=== PATIENT | female | born 1980 | race Caucasian/White ===

== ENCOUNTER 2025-02-02 16:50 | Emergency (ER) | payer OTHER, SELFPAY ==
--- NOTE | ~2025-02-02 | XR_ITS ---
XR chest 2V Ordering provider: Sebastian Brar MD History: 44 years Female with . dyspnea . Comparison: None. FINDINGS: MEDIASTINUM: The cardiac silhouette is not enlarged. LUNGS: No infiltrates, effusions or pneumothorax. OTHER: No free air under the diaphragm. IMPRESSION: No acute cardiopulmonary pathology. Reviewed, dictated and finalized at location A. [employer] WORK[employer]
--- OUTSIDE RECORDS SUMMARY | 2025-02-02 16:54 | XMS_ITS | Clinical Summary ---
Author Organization [address] Address [address] [place] [phone] Care Team Providers Care Rolls Mill Operator Name Role Phone No, Physician Primary Care Provider [phone] Allergies No known active allergies Medications budesonide-formote rol (SYMBICORT) 160-4.5 mcg/actuation inhaler 0 Inhaler 0 09/02/20 16 Active Additional Information Patient not taking.Reported on 03/02/2024 albuterol HFA (VENTOLIN HFA) 90 mcg/actuation inhaler 90 mcg. 0 Inhaler 0 09/02/20 16 Active acetaminophen-code ine (TYLENOL with CODEINE #3) 300-30 mg per tablet TK 1 T PO Q 4 H PRF LIVE Active aluminum chloride (Drysol Dab-O-Matic) 20 % external solution APPLY TOPICALLY TO THE AFFECTED AREA 2 TIMES A WEEK NEEDED FOR EXCESSIVE SWEATING Active cholecalciferol (VITAMIN D-3) 1,000 unit capsule Take 1 capsule every day by oral route with meal(s) for 30 days. 11/24/20 23 Active cyanocobalamin (Vitamin B-12) 1,[address] 1 tablet twice a day by sublingual route for 30 days. 11/24/20 23 Active FLUoxetine 10 mg tablet/capsule Take 1 tablet/capsule (10 mg total) by mouth every morning Active Advair Diskus 250-50 mcg/dose diskus inhaler Inhale 1 puff 2 (two) times a day 02/13/20 24 Active levonorgestreL (Mirena) IUD Take 1 insert by intrauterine route. Active metroNIDAZOLE (METROGEL) 0.75 % (37.5mg/5 gram) vaginal gel INSERT 1 APPLICATORFUL VAGINALLY EVERY DAY AT BEDTIME FOR 5 DAYS Active ondansetron ODT (ZOFRAN-ODT) 4 mg disintegrating tablet DISSOLVE 1 T PO Q 6 TO 8 H PRN NV Active polyethylene glycol (MIRALAX) 17 gram/dose bulk powder Take 17 g by mouth daily 12/17/19 17 Active predniSONE (DELTASONE) 10 mg tablet TK 4 TS PO X 3 DAYS THEN 2 TS X 3 DAYS THEN 1 T X 3DAYS Active sertraline (ZOLOFT) 25 mg tablet Take 1 tablet every day by oral route. Active sulfamethoxazole-t rimethoprim (BACTRIM DS) 800-160 mg per tablet Take 1 tablet by mouth 2 (two) times a day Active valACYclovir (VALTREX) 1 gram tablet Active Active Problems Problem Noted Date Diagnosed Date Atypical squamous cells of u ndetermined significance (ASCUS) on Papanicolaou smear of cervix 03/02/2024 Excessive sweating 03/02/2024 Premenstrual tension syndrome 03/02/2024 Low serum vitamin B12 11/23/2023 Low vitamin D level 11/23/2023 Unable to concentrate 10/24/2023 Axillary hyperhidrosis 08/16/2022 Multiple benign melanocytic nevi of upper and lower extremities and trunk 08/16/2022 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 at [address] [address] Mehul White NP Chest pain, unspecified type (Primary Dx); Acute respiratory infection; Exacerbation of asthma, unspecified asthma severity, unspecified whether persistent from Last 3 Months Immunizations Immunization Administration Dates Next Due Influenza, Quadrivalent, Spl it, Preservative Free, Intramuscular 09/19/2019 TD Preservative Free 06/26/2020 Medical History Medical History Date Comments Asthma Asthma Social History Tobacco Use Types Packs/Day Years Used Date Smoking Tobacco: Never Smokeless Tobacco: Never Comments Unknown Sex and Gender Information Value Date Recorded Sex Assigned at Not on file Legal Sex Female 6:41 AM ADVANCED REGISTERED NURSE Gender Identity Not on file Sexual Orientation Not on file Obstetrics History Last Filed Vital Signs Vital Sign Reading Time Taken Comments Blood Pressure 116/80 02/02/2025 4:02 PM ADVANCED REGISTERED NURSE Pulse 95 02/02/2025 4:02 PM ADVANCED REGISTERED NURSE Temperature 36.6 C (97.8 F) 02/02/2025 4:02 PM ADVANCED REGISTERED NURSE Respiratory Rate 20 02/02/2025 4:02 PM ADVANCED REGISTERED NURSE Oxygen Saturation 98% 02/02/2025 4:02 PM ADVANCED REGISTERED NURSE Inhaled Oxygen Concentration - - Weight 77.1 kg (170 lb) 02/02/2025 4:02 PM ADVANCED REGISTERED NURSE Height 162.6 cm (5' 4 ) 02/02/2025 4:02 PM ADVANCED REGISTERED NURSE Body Mass Index 29.18 02/02/2025 4:02 PM ADVANCED REGISTERED NURSE Plan of Treatment Health Maintenance Due Date Last Done Comments Breast Cancer Screening-Mammogram 1981 Cervical Cancer Screening 1981 Depression Screening 1981 Hepatitis C Screening 1981 Varicella Vaccines (1 of 2 - 13+ 2-dose series) 1994 Hepatitis B Screening 1999 Regular Well Visit/Exam 18-64 1999 Pneumococcal vaccine <65 (1 of 2 - PCV) 02/29/2000 DTaP/Tdap/Td Vaccine (1 - Tdap) 06/27/2020 06/26/2020 Covid-19 Vaccine (3 - season) 2024 03/02/2021, 01/30/2021 Influenza Vaccine Discontinued 09/19/2019 HPV Vaccines Aged Out No longer eligi ble based on patient's age to complete this topic Insurance [facility] Care Teams Rolls Mill Operator Relationship Specialty Start Date End Date No, Physician PCP - General 11/16/17
--- OUTSIDE RECORDS SUMMARY | 2025-02-02 16:54 | XMS_ITS | Clinical Summary ---
Author Organization [facility] Address [address] [place] [address] Phone Care Team Providers Care Roof Bolter Name Role Phone Provider, None Primary Care Provider Unavailabl e Allergies No known active allergies Medications ALBUTEROL IN take by inhalation. Active Budesonide-Form oterol Fumarate (SYMBICORT IN) take by inhalation. Active sulfamethoxazol e-trimethoprim DS (BACTRIM DS) 800-160 MG Tablet Take 1 Tab by mouth 2 times daily. Active polyethylene glycol (MIRALAX) Powder Take 17 g by mouth daily. 17 g = 1 scoop. Dissolve in 4 -8 oz of water or other liquid. 250 g 0 12/17/2016 Active Social History Tobacco Use Types Packs/Day Years Used Date Smoking Tobacco: Former Cigarettes Q uit: 12/17/2011 Alcohol Use Standard Drinks/Week Comments Yes 0 (1 standard drink = 0.6 oz pur e alcohol) Socially Comments No Sex and Gender Information Value Date Recorded Sex Assigned at Not on file Legal Sex Female 11:55 PM CDT Gender Identity Not on file Sexual Orientation Not on file Last Filed Vital Signs Vital Sign Reading Time Taken Comments Blood Pressure 117/64 12/17/2016 8:35 PM STRIP ROLLER Pulse 77 12/17/2016 10:41 PM STRIP ROLLER Temperature 37 C (98.6 F) 12/17/2016 8:32 PM STRIP ROLLER Respiratory Rate 16 12/17/2016 8:32 PM STRIP ROLLER Oxygen Saturation 99% 12/17/2016 10:41 PM STRIP ROLLER Inhaled Oxygen Concentration - - Weight 73 kg (161 lb) 12/17/2016 8:32 PM STRIP ROLLER Height 162.6 cm (5' 4 ) 12/17/2016 8:32 PM STRIP ROLLER Body Mass Index 27.64 12/17/2016 8:32 PM STRIP ROLLER Plan of Treatment Health Maintenance Due Date Last Done Comments Hepatitis C Virus (HCV) Screening 1981 TdaP Immunization 1981 Hepatitis B Immunization (1 of 3 - 19+ 3-dose series) 02/29/2000 Pap Smear 2002 Cervical Cancer Screening (CCS) 2011 HPV/Cotest 2011 Discussion re Starting/Frequ ency of Mammograms 2021 Influenza Immunization (#1) 2024 SARS-COV-2 Immunization ( season) 2024 Respiratory Syncytial Virus (RSV) Immunization (Adult) (1 - 1-dose 75+ series) 02/29/2056 Meningococcal Immunization (ACWY) Aged Out No longer eligible based on patient's age to complete this topic Pneumococcal Immunization Combined Aged Out No longer eligible based on patient's age to complete this topic Rotavirus Immunization Aged Out No lo nger eligible based on patient's age to complete this topic Insurance [employer] Care Teams Roof Bolter Relationship Specialty Start Date End Date Provider, None [place] PCP - General 12/17/16
--- OUTSIDE RECORDS SUMMARY | 2025-02-02 16:54 | XMS_ITS | Clinical Summary ---
Author Organization [facility] Address [address] [place] [address] Care Team Providers Care Wind Field Manager Name Role Phone Colleen Valera Primary Care Provider [phone] Source Comments [facility] [employer],non-owned Affiliates and Associated Physician Practices is amultiple site organization consisting of ambulatory clinics and hospital sitesin [place], [place], [place] and [place]. This disclosure is being madepursuant to the Care Everywhere program and may not contain all information available regarding this patient. Last updated 18.[facility] [employer] Allergies No known active allergies Medications * Be aware that medications may not be up to date on this document. Alwaysverify current medications with the patient. Medication Sig Dispensed Refills Start Date End Date Status levonorgestrel (Mirena) 20 MCG/DAY IUD 1 (one) device by Intrauterine route as directed Active Montelukast Sodium (SINGULAIR PO) Active Fluticasone-Salmete rol (ADVAIR DISKUS IN) Active aluminum chloride (Drysol) 20 % solution Drysol Dab-O-Matic 20 % topical solution APPLY TOPICALLY TO THE AFFECTED AREA TWICE A WEEK NEEDED FOR EXCESSIVE SWEATING Active albuterol HFA (Proventil; Ventolin; Proair) 108 (90 Base) MCG/ACT inhaler albuterol sulfate HFA 90 mcg/actuation aerosol inhaler Active vitamin D3 (Cholecalciferol) 25 MCG (1000 UNITS) tablet Take 1 (one) tablet by mouth once daily 02/13/2024 Active Active Problems Problem Noted Date Diagnosed Date Multiple benign melanocytic nevi of upper and lower extremities and trunk 08/16/2022 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 Axillary hyperhidrosis 08/16/2022 Immunizations Name Administration Dates Next Due TD (ADULT), 5 LF TETANUS TOXOID, ADSORBED, PF Social History Tobacco Use Types Packs/Day Years Used Date Smoking Tobacco: Former Smokeless Tobacco: Never Tobacco Cessation:Counseling Given: Not Answered Sex and Gender Information Value Date Recorded Sex Assigned at Not on file Gender Identity Not on file Sexual Orientation Not on file Last Filed Vital Signs Vital Sign Reading Time Taken Comments Blood Pressure 118/74 03/07/2020 11:26 AM CDT Pulse 70 03/07/2020 11:26 AM CDT Temperature 36.8 C (98.2 F) 03/07/2020 11:26 AM CDT Respiratory Rate 16 03/07/2020 11:26 AM CDT Oxygen Saturation 98% 03/07/2020 11:26 AM CDT Inhaled Oxygen Concentration - - Weight 77.1 kg (170 lb) 03/07/2020 11:26 AM CDT Height 165.1 cm (5' 5 ) 03/07/2020 11:26 AM CDT Body Mass Index 28.29 03/07/2020 11:26 AM CDT Plan of Treatment Upcoming Encounters Date Type Department Care Team (Late st Contact Info) Description 05/03/2025 10:30 AM CDT Office Visit [facility] - General Dermatology [address] , [address] [address] Lars Lua, PAaMidaC [address] [facility] [address] [place] [address] Health Maintenance Due Date Last Done Comments LIPID TESTING 1981 MAMMOGRAM 1981 PAP SMEAR 1981 HIV SCREENING 02/29/1996 HEPATITIS C SCREENING 02/24/1999 HEPATITIS B VACCINE (1 of 3 - 19+ 3-dose series) 02/29/2000 COVID-19 VACCINE (2023-2 5 season) 2024 03/02/2021, 01/30/2021 INFLUENZA VACCINE (#1) 2024 09/19/2019 DEPRESSION SCREENING 11/28/2024 DTAP/TDAP/TD VACCINES (2 - T d or Tdap) 06/26/2030 06/26/2020 ZOSTER VACCINE (1 of 2) 2031 HIB VACCINE Aged Out No longer eligi ble based on patient's age to complete this topic HPV VACCINE Aged Out No longer eligi ble based on patient's age to complete this topic MENINGOCOCCAL (Group B) VACCINE Aged Out No longer eligible b ased on patient's age to complete this topic MENINGOCOCCAL VACCINE Aged Out No toan jono eligible based on patient's age to complete this topic PNEUMOCOCCAL VACCINE Aged Out No long er eligible based on patient's age to complete this topic Care Teams Wind Field Manager Relationship Specialty Start Date End Date Colleen Valera [address] [place] [phone] PCP - General 05/02/24
--- OUTSIDE RECORDS SUMMARY | 2025-02-02 16:54 | XMS_ITS | Patient Health Summary ---
Author Organization [facility] Address [address] [facility] [place] [address] Care Team Providers Care Strategy Intern Name Role Phone Colleen Valera Primary Care Provider [phone] Note from [facility],non-owned Affiliates and Associated Physician Practices is amultiple site organization consisting of ambulatory clinics and hospital sitesin [place], [place], [place] and [place]. This disclosure is being madepursuant to the Care Everywhere program and may not contain all information available regarding this patient. Last updated 18.[facility] [employer] Allergies No known active allergies Medications * Be aware that medications may not be up to date on this document. Alwaysverify current medications with the patient. * levonorgestrel (Mirena) 20 MCG/DAY IUD 1 (one) device by Intrauterine route as directed * Montelukast Sodium (SINGULAIR PO) * Fluticasone-Salmeterol (ADVAIR DISKUS IN) * aluminum chloride (Drysol) 20 % solution Drysol Dab-O-Matic 20 % topical solution APPLY TOPICALLY TO THE AFFECTED AREA TWICE A WEEK NEEDED FOR EXCESSIVE SWEATING * albuterol HFA (Proventil; Ventolin; Proair) 108 (90 Base) MCG/ACT inhaler albuterol sulfate HFA 90 mcg/actuation aerosol inhaler * vitamin D3 (Cholecalciferol) 25 MCG (1000 UNITS) tablet(Started 02/13/2024) Take 1 (one) tablet by mouth once daily Active Problems Problem Noted Date Diagnosed Date Multiple benign melanocytic nevi of upper and lower extremities and trunk 08/16/2022 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 Axillary hyperhidrosis 08/16/2022 Immunizations * TD (ADULT), 5 LF TETANUS TOXOID, ADSORBED, PF(Given 06/26/2020) Social History Tobacco Use Types Packs/Day Years [...] Mass Index 28.29 03/07/2020 11:26 AM CDT Procedures * INFLUENZA A+B - POINT OF CARE (AMB)(Performed 01/09/2020) Performed for Acute maxillary sinusitis, recurrence not specified, Exposure to influenza * STREP A SCREEN - POINT OF CARE (AMB) STL(Performed 01/09/2020) Performed for Acute maxillary sinusitis, recurrence not specified, Exposure to influenza * CULTURE RESPIRATORY UPPER(Performed 05/07/2019) Performed for Acute pharyngitis, unspecified etiology * STREP A SCREEN - POINT OF CARE (AMB) STL(Performed 05/07/2019) Performed for Acute pharyngitis, unspecified etiology * STREP A SCREEN - POINT OF CARE (AMB) STL(Performed 05/21/2018) Performed for Acute pharyngitis, unspecified etiology * STREP A SCREEN - POINT OF CARE (AMB) STL(Performed 12/07/2017) Performed for Acute sinusitis, recurrence not specified, unspecified location * INFLUENZA A+B - POINT OF CARE (AMB)(Performed 12/07/2017) Performed for Influenza Results * INFLUENZA A+B - POINT OF CARE (AMB) (01/09/2020 10:56 AM TIRE FABRIC INSPECTOR) Only the most recent of2 resultswithin the time period is included. Influenza A Antigen Rapid Negative Negative Influenza B Antigen Rapid Negative Negative Influenza Internal Control present NEGATIVE - POSITIVE Influenza Lot Number [id number] Influenza Expiration Date 09 11 2021 Other NASOPHARYNGEAL SWAB / Unknown 01/09/2020 10:56 AM TIRE FABRIC INSPECTOR Mehul White APRN-SPECIAL NEEDS BUS DRIVER LAB - POINT OF CA RE ORDERABLES * STREP A SCREEN - POINT OF CARE (AMB) STL (01/09/2020 10:55 AM TIRE FABRIC INSPECTOR) Only the most recent of4 resultswithin the time period is included. Strep A Rapid POCT Negative Negative Strep A Internal Control Present Lot # [id number] Expiration Date 04 27 2021 Throat ENTIRE THROAT (SURFACE REGION OF NECK) / Unknown 01/09/2020 10:55 AM TIRE FABRIC INSPECTOR Grabielishmael Christopher DE LEONN-SPECIAL NEEDS BUS DRIVER LAB - POINT OF CA RE ORDERABLES * CULTURE RESPIRATORY UPPER (05/07/2019 4:27 PM CDT) Upper Respiratory Culture Final report [facility] INSURANCE BILL Result 1 [facility] INSURANCE BILL Comment:Routine respiratory ashley Microbiology ENTIRE THROAT (SURFACE REGION OF NECK) / Unknown 05/07/2019 4:27 PM CDT 05/07/2019 Narrative Resulting Agency Comment [facility] [address] [facility] [id number] Driss Kerns APRN-SPECIAL NEEDS BUS DRIVER LAB - MICRO BIOLOGY ORDERABLES [facility] INSURANCE BILL [address] [place] [address] Care Teams Strategy Intern Relationship Specialty Start Date End Date Colleen Valera [address] [place] [phone] PCP - General 05/02/24
--- OUTSIDE RECORDS SUMMARY | 2025-02-02 16:54 | XMS_ITS | Referral Summary ---
Author Organization [id number] Address [address] [place] [address] Care Team Providers Care Pizza Chef Name Role Phone No, Physician Primary Care Provider [phone] Encounters Date Type Department Care Team Description 02/02/2025 4:00 PM ACCESS CLINICIAN Office Visit [facility] at [address] [address] Mehul White NP Chest pain, unspecified type (Primary Dx); Acute respiratory infection; Exacerbation of asthma, unspecified asthma severity, unspecified whether persistent from Last 3 Months Allergies No known active allergies Medications budesonide-formote [...] iratory syndrome coronavirus 2 (SARS-CoV-2) disease 11/10/2021 Immunizations Immunization Administration Dates Next Due Influenza, Quadrivalent, Spl it, Preservative Free, Intramuscular 09/19/2019 TD Preservative Free 06/26/2020 Social History Tobacco Use Types Packs/Day Years Used Date Smoking Tobacco: Never Smokeless Tobacco: Never Comments Unknown Sex and Gender Information Value Date Recorded Sex Assigned at Not on file Legal Sex Female 6:41 AM ACCESS CLINICIAN Gender Identity Not on file Sexual Orientation Not on file Last Filed Vital Signs Vital Sign Reading Time Taken Comments Blood Pressure 116/80 02/02/2025 4:02 PM ACCESS CLINICIAN Pulse 95 02/02/2025 4:02 PM ACCESS CLINICIAN Temperature 36.6 C (97.8 F) 02/02/2025 4:02 PM ACCESS CLINICIAN Respiratory Rate 20 02/02/2025 4:02 PM ACCESS CLINICIAN Oxygen Saturation 98% 02/02/2025 4:02 PM ACCESS CLINICIAN Inhaled Oxygen Concentration - - Weight 77.1 kg (170 lb) 02/02/2025 4:02 PM ACCESS CLINICIAN Height 162.6 cm (5' 4 ) 02/02/2025 4:02 PM ACCESS CLINICIAN Body Mass Index 29.18 02/02/2025 4:02 PM ACCESS CLINICIAN Plan of Treatment Not on file Insurance [facility] Care Teams Pizza Chef Relationship Specialty Start Date End Date No, Physician PCP - General 11/16/17
--- OUTSIDE RECORDS SUMMARY | 2025-02-02 16:54 | XMS_ITS | Encounter Summary ---
Author Organization [facility] Address [address] [place] [address] Care Team Providers Care Operating Theatre Technician Name Role Phone No, Physician Primary Care Provider [phone] Reason for Visit * Reason Comments Cough Started Tuesday an progressively worse within the last 24 hours. Yellow green mucus coming up. Using inhaler more than normal. Hx of asthma. Wheezing More at night. Has n ot been using neb tx. Chest Pain With left arm pain. Started in the middle of the night. Encounter Details Date Type Department Care Team (Late st Contact Info) Description 02/02/2025 4:00 PM FINAL INSPECTOR BALANCE WHEEL Office Visit [facility] at [address] [address] Mehul White NP [address] [place] [address] [address] [place] [address] Chest pain, unspecified type (Primary Dx); Acute respiratory infection; Exacerbation of asthma, unspecified asthma severity, unspecified whether persistent Social History Tobacco Use Types Packs/Day Years Used Date Smoking Tobacco: Never Smokeless Tobacco: Never Comments Unknown Sex and Gender Information Value Date Recorded Sex Assigned at Not on file Legal Sex Female 6:41 AM FINAL INSPECTOR BALANCE WHEEL Gender Identity Not on file Sexual Orientation Not on file documented as of this encounter Last Filed Vital Signs Vital Sign Reading Time Taken Comments Blood Pressure 116/80 02/02/2025 4:02 PM FINAL INSPECTOR BALANCE WHEEL Pulse 95 02/02/2025 4:02 PM FINAL INSPECTOR BALANCE WHEEL Temperature 36.6 C (97.8 F) 02/02/2025 4:02 PM FINAL INSPECTOR BALANCE WHEEL Respiratory Rate 20 02/02/2025 4:02 PM FINAL INSPECTOR BALANCE WHEEL Oxygen Saturation 98% 02/02/2025 4:02 PM FINAL INSPECTOR BALANCE WHEEL Inhaled Oxygen Concentration - - Weight 77.1 kg (170 lb) 02/02/2025 4:02 PM FINAL INSPECTOR BALANCE WHEEL Height 162.6 cm (5' 4 ) 02/02/2025 4:02 PM FINAL INSPECTOR BALANCE WHEEL Body Mass Index 29.18 02/02/2025 4:02 PM FINAL INSPECTOR BALANCE WHEEL documented in this encounter Plan of Treatment Not on file documented as of this encounter Visit Diagnoses Diagnosis Chest pain, unspecified type- Primary Acute respiratory infection Other diseases of respiratory system, not elsewhere classified Exacerbation of asthma, unspecified asthma severity, unspecified whether persistent documented in this encounter Care Teams Operating Theatre Technician Relationship Specialty Start Date End Date No, Physician PCP - General 11/16/17 documented as of this encounter
--- OUTSIDE RECORDS SUMMARY | 2025-02-02 16:54 | XMS_ITS | Referral Summary ---
Author Organization [facility] Address [address] [facility] [place] [address] Care Team Providers Care [address] Sprinkler Name Role Phone Colleen Valera Primary Care Provider [phone] Source Comments [facility],non-owned Affiliates and Associated Physician Practices is amultiple site organization consisting of ambulatory clinics and hospital sitesin [place], [place], [place] and [place]. This disclosure is being madepursuant to the Care Everywhere program and may not contain all information available regarding this patient. Last updated 18.[facility] [employer] Allergies No known active allergies Medications * [...] Visit [facility] - General Dermatology [address], [facility] [address] [place] [address] Lras Lua PAMaidaC [address] [facility] [address] [place] [address] Sprinkler Relationship Specialty Start Date End Date Colleen Valera [address] [place] [phone] PCP - General 05/02/24
--- OUTSIDE RECORDS SUMMARY | 2025-02-02 16:54 | XMS_ITS | Data Portability ---
Author Organization [facility], Main Office Address [address] [place] [address] Care Team Providers Care Supervisor Rework Name Role Phone FELICIA ALVA Primary Care Provider Assessment Encounter Date Assessment Date Assessment LastModified by Organization Details LastModified Time 01/02/2025 01/02/2025 The patient gave verbal consent using TelePhonic services and the consent is documented in the medical record prior to using the service. The patient has been informed of what a TeleMedicine visit is. Patient is located at home. Provider is located at office. Names and roles of persons in addition to the patient and provider participating in telemedicine services include . The patient had a 8 minute TeleMedicine consultation via [employer] to discuss the following: [email or web address] Not available 01/02/2025 10:00:25 Plan of Treatment Reminders Order Date Submit Date Provider Last Modified By Organization Details Last Modified Time Details Appointments New Patient 40 2024 02:00P Sharla Medrano, PMHNP Not available Not available Not available Lab TSH, serum or plasma 2023 024 [facility] (Lab), [address] [place], [address], 03/13/2024 09:41:52 vitamin B12 + folate, serum or blood 2022 023 [email or web address] 1 [facility] (Lab), [address] [place], [address], 11/08/2023 12:24:53 vitamin D3, 25-hydrox y, serum 2022 023 [email or web address] 1 [facility] (Lab), [address] [place], [address], 11/08/2023 12:24:54 magnesium , serum or plasma 2022 023 [email or web address] 1 [facility] (Lab), [address] [place], [address], 11/08/2023 12:24:54 glycohemo globin, total, blood 2022 023 [email or web address] 1 [facility] (Lab), [address] [place], [address], 11/08/2023 12:24:53 CK (creatine kinase), total, serum 2022 023 [email or web address] 1 [facility] (Lab), [address] [place], [address], 11/08/2023 12:24:53 CMP, serum or plasma 2022 023 [email or web address] 1 [facility] (Lab), [address] [place], [address], 11/08/2023 12:24:53 lipid panel, serum 2022 023 [email or web address] [facility] (Lab), [address] [place], [address], 11/08/2023 08:53:04 Referral psychiatr ist referral - Please call patient to schedule an appointme nt. Thank you. 2024 025 ELIOT Medrano Pmhnp, [address], [address], 01/15/2025 17:08:33 psychiatr ist referral - Would like ADD screening . Please call patient to schedule an appointme nt. Thank you. 2023 024 [email or web address] [facility], [address] [place] [address], [address], 04/09/2024 08:44:33 Procedures None recorded. Surgeries None recorded. Imaging None recorded. Medication Orders bupropion HCl XL 150 mg 24 hr tablet, extended release 2024 025 [facility]57686, [address], [place], [id number], 01/11/2025 16:48:53 bupropion HCl XL 300 mg 24 hr tablet, extended release 2024 025 [facility] #90447, [address], [place], [id number], 01/11/2025 16:48:56 albuterol sulfate HFA 90 mcg/actua tion aerosol inhaler 2024 025 [facility] #02447, [address], [place], [id number], 01/02/2025 09:38:52 Drysol Dab-O-Mat ic 20 % topical solution 2024 025 [facility] #13734, [address], [place], [id number], 01/02/2025 09:38:52 Advair Diskus 250 mcg-50 mcg/dose powder for inhalatio n 2023 024 [facility] #67317, [address], [place], [id number], 03/12/2024 11:25:16 albuterol sulfate HFA 90 mcg/actua tion aerosol inhaler 2023 024 [facility] #68160, [address], [place], [id number], 03/12/2024 11:25:27 cholecalc iferol (vitamin D3) 25 mcg (1,000 unit) capsule [address] [facility]88498, [address], [place], [id number], 03/12/2024 10:26:25 cyanocoba gabriela (vit B-12) 1,000 mcg sublingua l tablet 2022 023 [facility] #74921, [address], [place], [id number], 11/24/2023 11:19:58 Advair Diskus 250 mcg-50 mcg/dose powder for inhalatio n 2022 023 [facility] #31798, [address], [place], [id number], 10/25/2023 11:51:06 albuterol sulfate HFA 90 mcg/actua tion aerosol inhaler 2022 023 [facility] #55454, [address], [place], [id number], 10/25/2023 11:51:07 Drysol Dab-O-Mat ic 20 % topical solution 2022 023 [facility] #71467, [address], [place], [id number], 10/25/2023 11:51:10 fluoxetin e 10 mg capsule [address] [facility]13673, [address] [place] [address], [id number], 01/11/2025 16:38:55 Patient TargetsNo targets recorded. Patient Instructions Encounter Date Encounter Id Patient Instructions Last Modified By Organization Details Last Modified Time 10/25/2023 [id number] no si/hi [email or web address] Not available 21:47:51 11/24/2023 [id number] she's going to watch her diet first befor starting a chol pill [email or web address] Not available 11/24/2023 11:17:10 01/02/2025 [id number] Due to the COVID-19 (Novel Coronavirus) pandemic, it is within this context (and with the understanding that this method of patient encounter is in the patient s best interest as well as the health and safety of other patients and the public) that telehealth is being provided for this patient encounter rather than a xlhs-dt-vtkv visit. This patient encounter is appropriate at this time. This patient has been advised of the potential risks and limitations of this mode of treatment (including, but not limited to, the absence of in-person examination) and has agreed to be treated in a remote fashion despite these risks. Any and all of the patient s/patient s family s questions on this issue have been answered, and I have made no promises or guarantees to the patient. The patient has also been advised to contact this office for worsening conditions or problems, and seek emergency medical treatment and/or call 911 if the patient deems either necessary. HPI and/or vitals, if listed, were provided by the patient. [email or web address] Not available 01/02/2025 09:57:49 Reason for Referral Psychiatrist Referral for Un able to concentrate Would like ADD screening. Please call patient to schedule an appointment. Thank you. Referring Physician: Felicia Alva [facility], Encounter Date: 03/12/2024 Psychiatrist Referral for Un able to concentrate Please call patient to schedule an appointment. Thank you. Referring Physician: Felicia Alva [facility] [employer] [facility], Encounter Date: 01/11/2025 Results Created Date Observation Date Name Description Value Unit Range Abnormal Flag Note LastModifiedBy Organization Detail LastModifiedTime Result Notes None recorded. Problems Name Problem SNOMED Code Status Onset Date Resolution Date Notes Provider Name and Address Organization Details Recorded Time Asthma 810296005 Active 2020 Not Available [facility] 3 08:22:06 History of SARS-CoV- 2 82032924583 7660726 Active 2020 Not Available [facility] 3 08:22:07 Atypical squamous cells of undetermi nabila significa nce on cervical Papanicol aou smear 751453374 Completed Not Available [facility] 3 08:22:07 Excessive sweating 96955120 Active Not Available [facility] 3 08:22:07 Premenstr ual tension syndrome 26247746 Active Not Available [facility] 3 08:22:07 Family history of hyperlipi demia 928812012 Active 2022 JANUARY Austin [address], [address], [place], [address] , [employer] [facility] [employer] [facility] 3 11:52:04 Unable to concentra te 85403227 Active 2022 JANUARY Austin [address], [address], [place], [address] , [employer] [facility] 3 11:55:36 Diabetes mellitus screening Active 2022 JANUARY Austin [address], [address], [place], [address] , [employer] [facility] 3 11:57:31 Vitamin D below reference range 196497741 Active 2022 JANUARY Austin [address], [address], [place], [address] , [employer] [facility] 3 11:17:23 Serum vitamin B12 below reference range 737175994 Active 2022 JANUARY Austin [address], [address], [place], [address] , [employer] [facility] 3 11:17:33 Weight gain 3493681 Active 2023 DREW Curiel [address], [address], [place], [address] , [employer] [facility] 4 10:53:44 Problem Notes None recorded. Medical Equipment None Reported. Allergies No known drug allergies Medications Name Sig Start Date Stop Date Status Note LastModified by Organization Details LastModified Time Mirena 21 mcg/24 hr (up to 8 years) 52 mg intrauterin e device Take 1 insert by intrauter ine route. active Not Available Not Available No t Available prednisone 10 mg tablet TK 4 TS PO X 3 DAYS THEN 2 TS X 3 DAYS THEN 1 T X 3DAYS active Not Available Not Available No t Available doxycycline hyclate 100 mg capsule 03/12 completed Not Available Not Available Not Available azithromyci n 250 mg tablet 01/19 completed Not Available Not Available Not Available valacyclovi r 1 gram tablet 03/12 completed Not Available Not Available Not Available phenazopyri dine 200 mg tablet TK 1 T PO TID FOR 2 DAYS 02/01 completed Not Available Not Available Not Available metronidazo le 0.75 % (37.5 mg/5 gram) vaginal gel INSERT 1 APPLICATO RFUL VAGINALLY EVERY DAY AT BEDTIME FOR 5 DAYS 01/29 completed Not Available Not Available Not Available prednisone 20 mg tablet TAKE 3 TABLETS BY MOUTH EVERY DAY FOR 5 DAYS 10/25 completed Not Available Not Available Not Available metronidazo le 500 mg tablet TAKE ONE TABLET BY MOUTH EVERY 12 HOURS X 7DAYS 01/02 completed Not Available Not Available Not Available acetaminoph en 300 mg-codeine 30 mg tablet TK 1 T PO Q 4 H PRF LIVE active Not Available Not Available No t Available sulfamethox azole 800 mg-trimetho prim 160 mg tablet TK 1 T PO Q 12 H 11/11 completed Not Available Not Available Not Available omeprazole 40 mg capsule,del ayed release Take 1 capsule every day by oral route for 30 days. 10/25 completed Not Available Not Available Not Available oxycodone-a cetaminophe n 5 mg-325 mg tablet TK 1 T PO Q 3 H 01/19 completed Not Available Not Available Not Available oseltamivir 75 mg capsule TK ONE C PO BID FOR 5 DAYS 01/19 completed Not Available Not Available Not Available misoprostol 200 mcg tablet TK 2 TS PO HS FOR 1 DAY 02/01 completed Not Available Not Available Not Available Advair Diskus 250 mcg-50 mcg/dose powder for inhalation INHALE 1 PUFF BY MOUTH TWICE DAILY. RINSE MOUTH AFTER USE EACH PUFF active Not Available Not Available No t Available fluoxetine 10 mg capsule TAKE 1 CAPSULE BY MOUTH EVERY DAY IN THE MORNING active Not Available Not Available No t Available sertraline 25 mg tablet Take 1 tablet every day by oral route. active Not Available Not Available No t Available Drysol Dab-O-Matic 20 % topical solution APPLY TOPICALLY TO THE AFFECTED AREA TWICE A WEEK NEEDED FOR EXCESSIVE SWEATING 2024 active Not Available Not Available Not Avai lable montelukast 10 mg tablet TK 1 T PO QD IN THE ERENDIRA 01/19 completed Not Available Not Available Not Available cyanocobala min (vit B-12) 1,[address] 1 tablet twice a day by sublingua l route for 30 days. 2022 active Not Available Not Available Not Avai lable mupirocin 2 % topical ointment APPLY TOPICALLY TO THE AFFECTED AREA THREE TIMES DAILY FOR 10 DAYS 03/12 completed Not Available Not Available Not Available ibuprofen 600 mg tablet TK 1 T PO Q 8 HOURS 02/07 completed Not Available Not Available Not Available polyethylen e glycol 3350 17 gram/dose oral powder MIX 17G IN 4 -8OZ OF WATER OR OTHER LIQUID AND DRINK D 02/01 completed Not Available Not Available Not Available methylpredn isolone 4 mg tablets in a dose pack Take as directed 04/15 completed Not Available Not Available Not Available albuterol sulfate HFA 90 mcg/actuati on aerosol inhaler INHALE 2 PUFFS BY MOUTH EVERY 4 HOURS NEEDED active Not Available Not Available No t Available oxybutynin chloride 5 mg tablet TK 1 T PO QD 10/12 completed Not Available Not Available Not Available ondansetron 4 mg disintegrat ing tablet DISSOLVE 1 T PO Q 6 TO 8 H PRN NV active Not Available Not Available No t Available doxycycline hyclate 100 mg tablet TAKE 1 TABLET BY MOUTH EVERY 12 HOURS FOR 10 DAYS 04/15 completed Not Available Not Available Not Available amoxicillin 875 mg-potassiu m clavulanate 125 mg tablet TK 1 T PO BID FOR 10 DAYS 01/19 completed Not Available Not Available Not Available cholecalcif kate (vitamin D3) 25 mcg (1,000 unit) capsule Take 1 capsule every day by oral route with meal(s) for 30 days. 03/12 completed Not Available Not Available Not Available bupropion HCl XL 300 mg 24 hr tablet, extended release TAKE 1 TABLET BY MOUTH EVERY DAY DIRECTED active Not Available Not Available No t Available bupropion HCl XL 150 mg 24 hr tablet, extended release Take 1 tablet every day by oral route as directed for 14 days. active Not Available Not Available No t Available cholecalcif kate (vitamin D3) 25 mcg (1,000 unit) tablet TAKE 1 TABLET BY MOUTH DAILY active Not Available Not Available No t Available Symbicort 160 mcg-4.5 mcg/actuati on HFA aerosol inhaler INHALE 2 PUFFS PO BID QAM AND QPM 08/23 completed Not Available Not Available Not Available Flonase Allergy Relief 50 mcg/actuati on nasal spray,suspe nsion Benedict 2 sprays every day by intranasa l route. 10/25 completed Not Available Not Available Not Available Solosec [address] granules in packet MIX AND DRINK 1 PACKET BY MOUTH 1 TIME 10/25 completed Not Available Not Available Not Available Afluria Qd 2019- (36 mos up)(PF)60 mcg (15 mcg x4)/0.5 mL IM syringe TO BE ADMINISTE RED BY PHARMACIS T FOR IMMUNIZAT ION 11/11 completed Not Available Not Available Not Available Vitals Date Recorded Body weight Body mass index (BMI) Body height Body temperature Heart rate Oxygen saturation Oxygen saturation in Arterial blood by Pulse oximetry Systolic blood pressure Diastolic blood pressure Provider Name and Address Organization Details Last Updated DateTime 3 17895.8 5 g 29.5 kg/m2 165.1 cm 97.6 [degF] 70 /min 98 % 98 % 116 mm[Hg] 72 mm[Hg] VIVEK Kendrick - [facility] [employer] 3 11:32:48 Date Recorded Body height Body mass index (BMI) Body weight Body temperature Heart rate Oxygen saturation Oxygen saturation in Arterial blood by Pulse oximetry Systolic blood pressure Diastolic blood pressure Provider Name and Address Organization Details Last Updated DateTime 3 165.1 cm 29.5 kg/m2 88027.8 5 g 97.6 [degF] 71 /min 98 % 98 % 122 mm[Hg] 78 mm[Hg] Clare Godoy MA [place] [employer] 3 11:01:44 Date Recorded Body height Body mass index (BMI) Body weight Body temperature Heart rate Respiratory rate Oxygen saturation Oxygen saturation in Arterial blood by Pulse oximetry Pain severity - 0-10 verbal numeric rating [Score] - Reported Systolic blood pressure Diastolic blood pressure Provider Name and Address Organization Details Last Updated DateTime 4 165.1 cm 30 kg/m2 44995.6 8 g 97.2 [degF] 64 /min 20 /min 99 % 99 % 4 110 mm[Hg] 70 mm[Hg] Kandy Veloz RN [facility] 4 10:31:21 Date Recorded Body height Body mass index (BMI) Body weight Body temperature Heart rate Respiratory rate Oxygen saturation Oxygen saturation in Arterial blood by Pulse oximetry Pain severity - 0-10 verbal numeric rating [Score] - Reported Systolic blood pressure Diastolic blood pressure Provider Name and Address Organization Details Last Updated DateTime 5 165.1 cm 28.7 kg/m2 35135.2 9 g 97.1 [degF] 66 /min 20 /min 99 % 99 % 0 117 mm[Hg] 70 mm[Hg] Kandy Veloz RN [place] [employer] [facility] 5 16:40:58 Social History Question Answer Notes LastModified by Organizat ion Details LastModified Time Tobacco Smoking Status Former Smoker Clare Godoy MA [facility] [employer] [facility] 10/25/2023 11:35:18 Do You Have An Advance Directive? No Information not available 03/12/2024 What Is Your Level Of Alcohol Consumption? Occasional [email or web address] Information not available 10/25/2023 Is Blood Transfusion Acceptable In An Emergency? Yes Information not available 03/12/2024 What Is Your Level Of Caffeine Consumption? Occasional [email or web address] Information not available 10/25/2023 What Is Your Code Status? Full Code Information not available 03/12/2024 In The 14 Days Before Symptom Onset, Have You Had Close Contact With A Laboratory-rosana joseph COVID-19 While That Case Was Ill? No Information not available 03/12/2024 In The 14 Days Before Symptom Onset, Have You Had Close Contact With A Person Who Is Under Investigation For COVID-19 While That Person Was Ill? No Information not available 03/12/2024 Are You Currently Employed? Yes Information not available 03/12/2024 What Type Of Diet Are You Following? 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 4 Information not available 03/12/2024 On Those Days That You Engage In Moderate To Strenuous Exercise, How Many Minutes, On Average, Do You Exercise? 60 Information not available 03/12/2024 Have There Been Any Changes To Your Family Or Social Situation? No Information not available 03/12/2024 When Did You Quit Smoking? 11-15yearssincelast cigarette [email or web address] Information not available 10/25/2023 Are There Any Guns Present In Your Home? No Information not available 03/12/2024 Do You Use Insect Repellent Routinely? Yes Information not available 03/12/2024 Where Do You Live? SingleLevelHouse Information not available 03/12/2024 Do You Have A Medical Power Of Extractive Metallurgist? No Information not available 03/12/2024 How Many Children Do You Have? 1 Information not available 03/12/2024 Do You Have Any Pets? Yes Information not available 03/12/2024 What Is Your Relationship Status? Information not available 03/12/2024 Do You Use Your Seat Belt Or Car Seat Routinely? Yes Information not available 10/25/2023 Do You Have Smoke And Carbon Monoxide Detectors In Your Home? Yes Information not available 03/12/2024 Are You Passively Exposed To Smoke? No Information not available 03/12/2024 Are There Any Smokers In Your House? No Information not available 03/12/2024 Do You Participate In Social Media? Yes [email or web address] Information not available 10/25/2023 What Types Of Sporting Activities Do You Participate In? Weight Training, Walk Information not available 03/12/2024 Do You Feel Stressed (tense, Restless, Nervous, Or Anxious, Or Unable To Sleep At Night)? [id number] [email or web address] Information not available 10/25/2023 Do You Use Any Illicit Or Recreational Drugs? No Information not available 10/25/2023 Do You Use Sunscreen Routinely? Yes Information not available 03/12/2024 Have You Recently Traveled Abroad? No Information not available 03/12/2024 Sex: Female Functional Status Question Answer Note LastModified by Organization D etails LastModified Time What is your exercise level? Heavy Information not available 03/12/2024 Mental Status None recorded. Family History Relationship Description Onset Age of this Age Resolved Age Notes LastModified by Organization Details LastModified Time Mother Osteoporosis [id number] Not available 01/26/2023 08:19:25 Medical History Condition Response ASTHMA Y Gynecological History Statement/Question Response Current Control Method Obstetrics History GPAL:G 0 P 0 0 0 0 Immunizations Vaccine Type Date Status Note Provider Nam e and Address Organization Details Recorded Time COVID-19, mRNA, LNP-S, PF, 30 mcg/0.3 mL dose 1 completed DREW Curiel [address], [address] [address], [place], [address], [facility] 03/12/2024 09:23:35 COVID-19, mRNA, LNP-S, PF, 30 mcg/0.3 mL dose 1 completed DREW Curiel [address], [address], [place], [address], [facility] 03/12/2024 09:23:35 Td (adult), 5 Lf tetanus toxoid, preservative free, adsorbed 0 completed DREW Curiel [address], [address], [place], [address], [facility] [place] [employer] 03/12/2024 09:23:35 Influenza, split virus, quadrivalent, PF 9 completed DREW Curiel [address], [place], [address], [facility] [employer] [facility] 03/12/2024 09:23:35 Past Encounters Encounter ID Performer Location Encounter Start Date Encounter Closed Date Diagnosis/Indication Diagnosis SNOMED-CT Code Diagnosis ICD10 Code Diagnosis Note [id number] [facility] [place] [address] [place] [address] [place] [address] 11/11/2021 00:00:00 11/11/2021 10:05:20 [id number] [facility] [place] [address] [place] [address] [place] [address] 12/07/2021 00:00:00 12/07/2021 13:04:42 [id number] [facility] [place] [address] 04/15/2022 00:00:00 04/15/2022 15:25:33 [id number] JANUARY Austin [facility] [place] [address] [place] [address] [place] [address] 10/25/2023 11:23:17 10/25/2023 12:01:38 Asthma 918862671 J45.909 Excessive sweating 62988 005 R61 hyperhidro sis Family his tory of hyperlipidemia 394786250 Z83.49 Unable to concentrate 60 391933 R41.840 Diabetes m ellitus screening 905635540 Z13.1 At [facility] risk of nutritional deficit 845046198 Z91.89 [id number] JANUARY Austin [facility] [address] [place] [address] 11/24/2023 10:55:23 11/24/2023 11:17:25 Vitamin D below reference range 119331350 E55.9 Serum abram min B12 below reference range 066307966 R79.89 Asthma 521567668 J45.90 9 Excessive sweating 26898 005 R61 hyperhidro sis Premenstru al tension syndrome 01744339 N94.3 [id number] [facility] [address] 03/12/2024 10:18:12 03/12/2024 11:06:48 Unable to concentrate 23998164 R41.840 Weight gain 7547742 R63. 5 Asthma 538411884 J45.90 9 [id number] Felicia Alva [address] [address] 01/02/2025 08:42:13 01/02/2025 10:01:37 Asthma 896390376 J45.909 Worsening wheezing symptoms. Notes requiring albuterol more frequently and running out quickly.St ill utilizing advair daily Excessive sweating 51922 005 R61 [id number] Felicia Alva [facility] [address] 01/11/2025 16:27:17 01/14/2025 08:53:12 Unable to concentrate 53843710 R41.840 Would like to be evaluated for ADHD Health Concerns Section Related Observation LastModified by Organization Detai ls LastModified Time None Recorded Concern Status LastModified by Organization Details LastModified Time None Recorded Advance Directives Directive N: Payers Encounter Date Sequence Insurance Name Policy Number Policy Blake Covered Member ID Blake Member ID Guarantor Name 10/25/2023 1 [facility] ON OR AFTER 05/28/21 (MEDICAID REPLACEMENT - HMO) Kayode Burgess [id number] Kayode Burgess 11/24/2023 1 [facility] - DOS ON OR AFTER 21 (MEDICAID REPLACEMENT - HMO) Kayode Burgess [id number] Kayode Burgess 03/12/2024 1 [facility] - DOS ON OR AFTER 21 (MEDICAID REPLACEMENT - HMO) Kayode Burgess [id number] Kayode Burgess 01/02/2025 1 [facility] - DOS ON OR AFTER 21 (MEDICAID REPLACEMENT - HMO) Kayode Burgess [id number] Kayode Burgess 01/11/2025 1 [facility] - DOS ON OR AFTER 21 (MEDICAID REPLACEMENT - HMO) Kayode Burgess [id number] Kayode Burgess Notes Date Note Type Note Provider Name and Address Organization Details Recorded Time 10/25/2023 text/html kids diagnosed, age 7 son , daughter age 12 , mild. She is worried she may be too, cannot focus , is JANUARY Norton [address] [employer], [place], [address], [employer] 10/27/2023 21:48:24 11/24/2023 text/html here for lab results JANUARY Austin [address] [employer], [place], [address], [employer] 11/27/2023 16:24:39 03/12/2024 text/html Kayode Burgess is a 44 year old female here to establish care. She was previously under care of Dr. Nair and JANUARY Sutton. Her past medical history is pertinent for asthma. She takes advair diskus 1 puff BID and albuterol PRN. She feels that this is well controlled. She has a history of vitamin D and B12 deficiency. Her last vitamin D level (11/08/2023) was 27.7 and B12 was 381. She is currently taking cholecalciferol 1,000 u PO daily and cyancobalamin 1,000 mcg PO BID. She has concerns for ADD. Her son has ADD and she feels that they have many of the same symptoms. She is all over fidgety and has difficulty focusing on a single task. She had cellulitis on her right arm. She finished her antibiotic course on Tuesday (03/10/24). She was seen in . She still has a knot in her arm that she is concerned about. This started on 02/25/24, she was doing yard work and got a small scratch on her arm, she then had swelling, itching, hives, and cellulitis. The redness has resolved. There is now a small linear nodule (<1cm) under the original scratch. We will do watchful waiting. She has gained 40 pounds over the last 4 years. Flu Shot: unsureCOVID vaccines: 02/15, 02/2021Tdap: 05/2020WWE: 06/2023, managed by OBMammogram: 01/2024, managed by DREW Loya [address] [employer], [address], [place], [address], [employer] 03/12/2024 11:00:18 01/02/2025 text/html Kayode Burgess is a 44 year old female patient via telephone Concern with worsening asthma. States had COVID last month and had multiple wheezing episodes. Explained her albuterol is only lasting 2 weeks. Would like an increase in dose needs med refills todau DREW Curiel [address] [employer], [address], [place], [address], [employer] 01/02/2025 10:01:43 01/11/2025 text/html Kayode Burgess is a 44 year old female patient here today for concerns of ADHD Notes lifelong difficulty concentrating. Has a new job that requires focus and is struggling DREW Curiel [address] [employer] [address], [address], [place], [address], [employer] 01/11/2025 16:52:19 OBGyn Episode No OBEpisode recorded.
[2025-02-02 16:59] VITALS: BP 125/82; PULSE 92; RESP 24; TEMP 36.8; O2SAT 99
--- OUTSIDE RECORDS SUMMARY | 2025-02-02 17:27 | XMS_ITS | Referral Summary ---
Author Organization [facility] [id number] [place] Address [address] [place] [phone] Care Team Providers Care Over Hauler Helper Name Role Phone No, Physician Primary Care Provider [phone] Encounters Date Type Department Care Team Description 02/02/2025 4:00 PM ORGANIC EXTRACTIONS TECHNICIAN Office Visit [facility] Con[facility]ient Care at [address] [address] Mehul White NP Chest pain, [...] on file Legal Sex Female 6:41 AM ORGANIC EXTRACTIONS TECHNICIAN Gender Identity Not on file Sexual Orientation Not on file Last Filed Vital Signs Vital Sign Reading Time Taken Comments Blood Pressure 116/80 02/02/2025 4:02 PM ORGANIC EXTRACTIONS TECHNICIAN Pulse 95 02/02/2025 4:02 PM ORGANIC EXTRACTIONS TECHNICIAN Temperature 36.6 C (97.8 F) 02/02/2025 4:02 PM ORGANIC EXTRACTIONS TECHNICIAN Respiratory Rate 20 02/02/2025 4:02 PM ORGANIC EXTRACTIONS TECHNICIAN Oxygen Saturation 98% 02/02/2025 4:02 PM ORGANIC EXTRACTIONS TECHNICIAN Inhaled Oxygen Concentration - - Weight 77.1 kg (170 lb) 02/02/2025 4:02 PM ORGANIC EXTRACTIONS TECHNICIAN Height 162.6 cm (5' 4 ) 02/02/2025 4:02 PM ORGANIC EXTRACTIONS TECHNICIAN Body Mass Index 29.18 02/02/2025 4:02 PM ORGANIC EXTRACTIONS TECHNICIAN Plan of Treatment Not on file Insurance [facility] Care Teams Over Hauler Helper Relationship Specialty Start Date End Date No, Physician PCP - General 11/16/17
--- OUTSIDE RECORDS SUMMARY | 2025-02-02 17:27 | XMS_ITS | Referral Summary ---
Author Organization [facility] Address [address] [facility] [place] [address] Care Team Providers Care Fruit Culler Name Role Phone Colleen Valera Primary Care Provider [phone] Source Comments [facility],non-owned Affiliates and Associated Physician Practices is amultiple site organization consisting of ambulatory clinics and hospital sitesin [place], [place], [place] and [place]. This disclosure is being madepursuant to the Care Everywhere program and may not contain all information available regarding this patient. Last updated 18.[facility] [employer] Allergies No known active allergies Medications * [...] - General Dermatology [address], [facility] [address] [place] [address] Lars Lua PAMaidaC [address] [facility] [address] [place] [address] Care Teams Fruit Culler Relationship Specialty Start Date End Date Colleen Valera [address] [place] [address] [phone] PCP - General 05/02/24
--- OUTSIDE RECORDS SUMMARY | 2025-02-02 17:27 | XMS_ITS | Encounter Summary ---
Author Organization [facility] Address [address] [place] [address] Care Team Providers Care A And P Mechanic Name Role Phone No, Physician Primary Care Provider [phone] Reason for Visit * Reason Comments Cough [...] st Contact Info) Description 02/02/2025 4:00 PM KIER BOILER Office Visit [facility] Medical Group Convenient Care at [address] [address] Mehul White NP [address] [place] [address] [address] [place] [address] Chest pain, unspecified type (Primary Dx); Acute respiratory infection; Exacerbation of asthma, unspecified asthma severity, unspecified whether persistent Social History Tobacco Use Types Packs/Day Years Used Date Smoking Tobacco: Never Smokeless Tobacco: Never Comments Unknown Sex and Gender Information Value Date Recorded Sex Assigned at Not on file Legal Sex Female 6:41 AM KIER BOILER Gender Identity Not on file Sexual Orientation Not on file documented as of this encounter Last Filed Vital Signs Vital Sign Reading Time Taken Comments Blood Pressure 116/80 02/02/2025 4:02 PM KIER BOILER Pulse 95 02/02/2025 4:02 PM KIER BOILER Temperature 36.6 C (97.8 F) 02/02/2025 4:02 PM KIER BOILER Respiratory Rate 20 02/02/2025 4:02 PM KIER BOILER Oxygen Saturation 98% 02/02/2025 4:02 PM KIER BOILER Inhaled Oxygen Concentration - - Weight 77.1 kg (170 lb) 02/02/2025 4:02 PM KIER BOILER Height 162.6 cm (5' 4 ) 02/02/2025 4:02 PM KIER BOILER Body Mass Index 29.18 02/02/2025 4:02 PM KIER BOILER documented in this encounter Plan of Treatment Not on file documented as of this encounter Visit Diagnoses Diagnosis Chest pain, unspecified type- Primary Acute respiratory infection Other diseases of respiratory system, not elsewhere classified Exacerbation of asthma, unspecified asthma severity, unspecified whether persistent documented in this encounter Care Teams A And P Mechanic Relationship Specialty Start Date End Date No, Physician PCP - General 11/16/17 documented as of this encounter
--- OUTSIDE RECORDS SUMMARY | 2025-02-02 17:27 | XMS_ITS | Clinical Summary ---
Author Organization [facility] Address [address] [facility] [place] [address] Care Team Providers Care Hammer Driver Name Role Phone Colleen Valera Primary Care Provider [phone] Source Comments [facility],non-owned Affiliates and Associated Physician Practices is amultiple site organization consisting of ambulatory clinics and hospital sitesin [place], [place], [place] and [place]. This disclosure is being madepursuant to the Care Everywhere program and may not contain all information available regarding this patient. Last updated 18.[facility] Allergies No known active allergies Medications * [...] Visit [facility] - General Dermatology [address] [address] Lars Lua, PAMaidaC [address] [facility] [address] [place] [address] Health Maintenance Due Date Last [...] age to complete this topic Care Teams Hammer Driver Relationship Specialty Start Date End Date Colleen Valera [address] [place] [phone] PCP - General 05/02/24
--- OUTSIDE RECORDS SUMMARY | 2025-02-02 17:27 | XMS_ITS | Clinical Summary ---
Author Organization [address] Address [address] [place] [phone] Care Team Providers Care Tow Bar Driver Name Role Phone No, Physician Primary Care Provider [phone] Allergies No known active allergies Medications budesonide-formote [...] Department Care Team Description 02/02/2025 4:00 PM FACE HARDENER Office Visit [facility] Medical Group Convenient Care at [address] [address] Mehul White NP Chest pain, [...] on file Legal Sex Female 6:41 AM FACE HARDENER Gender Identity Not on file Sexual Orientation Not on file Obstetrics History Last Filed Vital Signs Vital Sign Reading Time Taken Comments Blood Pressure 116/80 02/02/2025 4:02 PM FACE HARDENER Pulse 95 02/02/2025 4:02 PM FACE HARDENER Temperature 36.6 C (97.8 F) 02/02/2025 4:02 PM FACE HARDENER Respiratory Rate 20 02/02/2025 4:02 PM FACE HARDENER Oxygen Saturation 98% 02/02/2025 4:02 PM FACE HARDENER Inhaled Oxygen Concentration - - Weight 77.1 kg (170 lb) 02/02/2025 4:02 PM FACE HARDENER Height 162.6 cm (5' 4 ) 02/02/2025 4:02 PM FACE HARDENER Body Mass Index 29.18 02/02/2025 4:02 PM FACE HARDENER Plan of Treatment Health Maintenance Due Date [...] patient's age to complete this topic Insurance [facility] Care Teams Tow Bar Driver Relationship Specialty Start Date End Date No, Physician PCP - General 11/16/17
--- OUTSIDE RECORDS SUMMARY | 2025-02-02 17:27 | XMS_ITS | Patient Health Summary ---
Author Organization [facility] Address [address] [place] [address] Care Team Providers Care Grinder Carbon Plant Name Role Phone Colleen Valera Primary Care Provider [phone] Note from [facility],non-owned Affiliates and Associated Physician Practices is amultiple site organization consisting of ambulatory clinics and hospital sitesin [place], [place], [place] and [place]. This disclosure is being madepursuant to the Care Everywhere program and may not contain all information available regarding this patient. Last updated 18.[facility] [employer] Allergies No known active allergies Medications * [...] POINT OF CARE (AMB) (01/09/2020 10:56 AM LEAD CONSULTANT) Only the most recent of2 resultswithin the time period is included. Influenza A Antigen Rapid Negative Negative Influenza B Antigen Rapid Negative Negative Influenza Internal Control present NEGATIVE - POSITIVE Influenza Lot Number [id number] Influenza Expiration Date 09 11 2021 Other NASOPHARYNGEAL SWAB / Unknown 01/09/2020 10:56 AM LEAD CONSULTANT Mehul White APRN-TURNING AND BEADING MACHINE OPERATOR LAB - POINT OF CA RE ORDERABLES * STREP A SCREEN - POINT OF CARE (AMB) STL (01/09/2020 10:55 AM LEAD CONSULTANT) Only the most recent of4 resultswithin the time period is included. Strep A Rapid POCT Negative Negative Strep A Internal Control Present Lot # [id number] Expiration Date 04 27 2021 Throat ENTIRE THROAT (SURFACE REGION OF NECK) / Unknown 01/09/2020 10:55 AM LEAD CONSULTANT Grabielishmael Christopher DE LEONN-TURNING AND BEADING MACHINE OPERATOR LAB - POINT OF CA RE ORDERABLES * CULTURE RESPIRATORY UPPER (05/07/2019 4:27 PM CDT) Upper Respiratory Culture Final report [facility] INSURANCE BILL Result 1 [facility] INSURANCE BILL Comment:Routine respiratory ashley Microbiology ENTIRE THROAT (SURFACE REGION OF NECK) / Unknown 05/07/2019 4:27 PM CDT 05/07/2019 Narrative Resulting Agency Comment [facility]: [facility] [address] [facility] [id number] Driss Kerns APRN-TURNING AND BEADING MACHINE OPERATOR LAB - MICRO BIOLOGY ORDERABLES [facility] INSURANCE BILL [address] [place] [address] Care Teams Grinder Carbon Plant Relationship Specialty Start Date End Date Colleen Valera [address] [place] [phone] PCP - General 05/02/24
--- OUTSIDE RECORDS SUMMARY | 2025-02-02 17:27 | XMS_ITS | Clinical Summary ---
Author Organization [facility] Address [address] [place] [address] Phone Care Team Providers Care Ladle Car Operator Name Role Phone Provider, None Primary Care [...] Comments Blood Pressure 117/64 12/17/2016 8:35 PM CUSTOMER CARE ASSISTANT Pulse 77 12/17/2016 10:41 PM CUSTOMER CARE ASSISTANT Temperature 37 C (98.6 F) 12/17/2016 8:32 PM CUSTOMER CARE ASSISTANT Respiratory Rate 16 12/17/2016 8:32 PM CUSTOMER CARE ASSISTANT Oxygen Saturation 99% 12/17/2016 10:41 PM CUSTOMER CARE ASSISTANT Inhaled Oxygen Concentration - - Weight 73 kg (161 lb) 12/17/2016 8:32 PM CUSTOMER CARE ASSISTANT Height 162.6 cm (5' 4 ) 12/17/2016 8:32 PM CUSTOMER CARE ASSISTANT Body Mass Index 27.64 12/17/2016 8:32 PM CUSTOMER CARE ASSISTANT Plan of Treatment Health Maintenance Due Date [...] this topic Insurance [employer] Care Teams Ladle Car Operator Relationship Specialty Start Date End Date Provider, None [place] PCP - General 12/17/16
--- NOTE | 2025-02-02 17:31 | ECG_ITS ---
Test Date: 2025-02-02 17:14:50 Measurements Intervals Dexter Rate: 84 P: 60 ND: 159 QRS: 76 QRSD: 84 T: 50 QT: 362 QTc: 429 Interpretive Statements SINUS RHYTHM LOW-VOLTAGE CANNOT EXCLUDE PREVIOUS ANTEROSEPTAL AL ABNORMAL ECG No previous ECG available for comparison Electronically Signed On 02-03-2025 07:54:07 CDT by Yvan Martin M.D.
--- NOTE | 2025-02-02 17:40 | ED.SOB ---
HPI - SOB/Dyspnea General Chief Complaint: Shortness of Breath/Dyspnea Stated Complaint: Asthma-arm/chest pain-sent by [facility] Time Seen by Provider: 02/02/25 17:11 Source: patient and RN notes reviewed Mode of arrival: ambulatory Limitations: no limitations History of Present Illness HPI Narrative: This is a 44 year old female with asthma who presents for evaluation of shortness of breath. She states she developed a couple 2 days ago and shortness of breath yesterday. She reports cough with productive with yellow and green sputum. She is taking advair and albuterol for her asthma. She last used her albuterol inhaler 2 hours ago. She reports temporary relief after using albuterol inhaler. She also reports left chest pain since last night. Related Data Allergies Allergy/AdvReac Type Severity Reaction Status Date / Time No Known Allergies Allergy Verified 02/02/25 16:52 Review of Systems Constitutional: Constitutional: Denies chills and Denies fever(s) Cardiovascular: Cardiovascular: Reports chest pain Respiratory: Respiratory: Reports cough, Reports dyspnea and Reports wheezing Gastrointestinal: Gastrointestinal: Denies abdominal pain PMFSH Past Medical History Medical History (Updated 02/02/25 @ 18:38 by Merlyn Marie MD) Asthma Family History Family History (Updated 07/25/14 @ 07:13 by DOCTOR UNKNOWN) Father Family history of coronary artery disease Social History Social History Smoking status: Never smoker Alcohol intake: never Exam Const: General: alert Nutritional Appearance: well nourished Orientation/consciousness: patient oriented x3 HENMT: Head: normal to inspection Eyes: EOM: EOMs intact bilaterally Resp: Effort & Inspection: tachypneic Auscultation: wheezes expiratory wheezes, lower bilaterally, posterior and throughout Cardio: Rate: regular rate Rhythm: regular rhythm Heart sounds: no murmurs GI: GI Palp: Yes Soft to palpation, No Tenderness to palpation present (GI), No Guarding due to palpation present (GI) and No Rigid due to palpation Auscultation: normal bowel sounds Skin: General skin exam: normal color Rashes: no rashes Neuro: General: patient oriented x3 and moves all extremities Cranial nerves: Yes Nystagmus not present Extrem: General: normal to inspection Psych: Mental Status: mental status grossly normal Affect: normal affect Attitude: cooperative Course Reevaluation(s) Reevaluation #1: Patient states she feels much better. On reassessment , she is able to speak in complete sentences. Lungs are clear. viral swabs are negative. Chest xray is clear. She is agreeable with discharge on steroids. She will be given spacer and she reports she has enough solution for her albuterol nebulizer. Date: 02/02/25 Time: 18:31 Vital Signs Vital signs: Vital Signs Temperature 98.3 F 02/02/25 16:59 Pulse Rate 92 02/02/25 16:59 Respiratory Rate 24 H 02/02/25 16:59 Blood Pressure 125/82 02/02/25 16:59 Pulse Oximetry 99 02/02/25 16:59 Oxygen Delivery Room Air 02/02/25 16:59 Temperature 98.3 F 02/02/25 16:59 Pulse Rate 84 02/02/25 17:50 Respiratory Rate 18 02/02/25 17:50 Blood Pressure 125/82 02/02/25 16:59 Pulse Oximetry 100 02/02/25 17:46 Oxygen Delivery Room Air 02/02/25 17:46 MDM - SOB/Dyspnea Differential Diagnosis Differential diagnosis: Likely acute exacerbation of chronic obstructive airways disease, congestive heart failure, community acquired pneumonia, asthma with exacerbation and pulmonary embolism (low risk , perc) Lab Data Attestation: I reviewed the patient's lab results. 02/02/25 17:44 02/02/25 17:44 Labs: Lab Results 02/02/25 02/02/25 Range/Units 17:44 18:19 WBC 7.8 (4.5-10.0) K/mm3 RBC 4.63 (4.2-5.4) M/mm3 Hgb 13.8 (12.0-15.0) g/dL Hct 41.5 (37.0-47.0) % MCV 89.6 (80-100) fl MCH 29.8 (26-34) pg MCHC 33.3 (32-36) g/dl RDW 14.1 (11.5-14.5) % Plt Count 304 (150-375) k/mm3 MPV 9.4 (7.4-10.4) fl Immature Gran % (Auto) 0.4 (0-0.5) % Neut % (Auto) 64.2 (45.5-73.1) % Lymph % (Auto) 19.6 (18.3-44.2) % [place] % (Auto) 8.4 (2.6-8.5) % Eos % (Auto) 6.5 H (0-4.4) % Baso % (Auto) 0.9 (0.2-1.2) % Lymph # (Auto) 1.52 (0.9-3.2) K/mm3 [place] # (Auto) 0.7 H (0.1-0.6) K/mm3 Eos # (Auto) 0.5 H (0-0.3) K/mm3 Baso # (Auto) 0.1 (0.0-0.1) K/mm3 Abs Immat Gran (auto) 0.03 (0.00-0.031) K/mm3 Absolute Neuts (auto) 5.0 (1.3-6.7) K/mm3 Absolute Nucleated RBC 0.000 (0.0-0.012) K/mm3 Nucleated RBC % 0.0 (0.0-0.2) % Sodium 136 L (137-145) mmol/L Potassium 3.5 (3.4-5.0) mmol/L Chloride 103 (98-107) mmol/L Carbon Dioxide 21 L (22-30) mmol/L Anion Gap 12 (4-12) mmol/L BUN 7 (7-17) mg/dL Creatinine 0.66 L (0.7-1.0) mg/dL Estim Creat Clear Calc 88 ml/min Estimated GFR > 60 (59 - ) Glucose 86 (65-110) mg/dL Calcium 8.9 (8.4-10.2) mg/dL Magnesium 1.7 (1.6-2.3) mg/dL Total Bilirubin 0.4 (0.2-1.3) mg/dL AST 19 (14-36) U/L ALT 19 (6-35) U/L Alkaline Phosphatase 47 (38-126) U/L Troponin I < 0.012 (0.000-0.034) ng/mL Total Protein 7.0 (6.3-8.2) g/dL Albumin 4.2 (3.5-5.1) g/dL Urine Color Yellow (Yellow) Urine Appearance Clear (Clear) Urine pH 6.0 (5.0-9.0) Ur Specific [place] 1.020 (1.001-1.035) Urine Protein Negative (Negative) mg/dL Urine Glucose (UA) Negative (Negative) mg/dL Urine Ketones 2+ H (Negative) mg/dL Ur Blood (Man) Negative (Negative) Urine Nitrate Negative (Negative) Urine Bilirubin Negative (Negative) Urine Urobilinogen 1.0 (<2.0) mg/dL Leukocyte Esterase Rfl Negative (Negative) SAMMY/UL Influenza A (RT-PCR) Negative (Negative) Influenza B (RT-PCR) Negative (Negative) RSV (RT-PCR) Negative (Negative) SARS-CoV-2 RNA (RT-PCR) Negative (Negative) Imaging Data Radiologist's impression: ITS Impressions Chest X-Ray 02/02/25 17:25 IMPRESSION: No acute cardiopulmonary pathology. ECG Data EKG #1: Attestation: I personally reviewed and interpreted this ECG as follows: ECG completion date: 02/02/25 ECG completion time: 17:14 Interpretation: normal axis EKG Interpretation: normal rate, sinus rhythm and no ST changes Discharge Plan Discharge Clinical Impression: Acute bronchitis with asthma Patient Disposition: Home, Self-Care Condition: Improved Instructions: Asthma (ED), Acute Bronchitis (ED) Additional Instructions: Today you were evaluated for an exacerbation of your asthma. I recommend that you use your albuterol inhaler with spacer or your albuterol nebulizer every 4 to 6 hours as needed. If your symptoms worsen return to ER. Take prednisone as prescribed. Patient Language: Indonesian Prescriptions: New prednisone 50 mg tablet 50 mg PO DAILY Qty: 7 0RF Follow-up/Referrals: Moraima,Colleen Rogers, FRONT DESK ASSOCIATE [Primary Care Provider] -
[2025-02-02 17:43] VITALS: PULSE 87; RESP 18
[2025-02-02] MEDS: predniSONE 20 MG TABLET 60 MG PO (17:43)
[2025-02-02] MEDS: IPRATROPIUM 0.5 MG/ALBUTEROL SULFATE 2.5 MG AMPUL.NEB 3 ML INHALATION (17:43)
[2025-02-02 17:46] VITALS: O2SAT 100
[2025-02-02 17:50] VITALS: PULSE 84; RESP 18
[2025-02-02 17:50] LABS: Basophils Absolute Auto 0.1 K/mm3 (0.0-0.1); Basophils Percent Auto 0.9 % (0.2-1.2); Eosinophils Absolute Auto 0.5 K/mm3 (0-0.3); Eosinophils Percent Auto 6.5 % (0-4.4); Hematocrit 41.5 % (37.0-47.0); Hemoglobin 13.8 g/dL (12.0-15.0); Immature Granulocyte Absolute 0.03 K/mm3 (0.00-0.031); Immature Granulocyte Percent A 0.4 % (0-0.5); Lymphocytes Absolute Auto 1.52 K/mm3 (0.9-3.2); Lymphocytes Percent Auto 19.6 % (18.3-44.2); Mean Corpuscular HGB Conc 33.3 g/dl (32-36); Mean Corpuscular Hemoglobin 29.8 pg (26-34); Mean Corpuscular Volume 89.6 fl (80-100); Mean Platelet Volume 9.4 fl (7.4-10.4); Monocytes Absolute Auto 0.7 K/mm3 (0.1-0.6); Monocytes Percent Auto 8.4 % (2.6-8.5); Neutrophils Percent Auto 64.2 % (45.5-73.1); Platelet Count Result 304 k/mm3 (150-375); Red Blood Count 4.63 M/mm3 (4.2-5.4); Red Cell Distribution Width 14.1 % (11.5-14.5); White Blood Count 7.8 K/mm3 (4.5-10.0)
[2025-02-02 18:01] LABS: Alanine Aminotransferase 19 U/L (6-35); Albumin Level 4.2 g/dL (3.5-5.1); Alkaline Phosphatase 47 U/L (38-126); Anion Gap 12 mmol/L (4-12); Aspartate Amino Transferase 19 U/L (14-36); Bilirubin,Total 0.4 mg/dL (0.2-1.3); Blood Urea Nitrogen 7 mg/dL (7-17); Calcium 8.9 mg/dL (8.4-10.2); Carbon Dioxide 21 mmol/L (22-30); Chloride 103 mmol/L (98-107); Estimated CRCL calculation 88 ml/min; Estimated Glomerular Filt Rate > 60; Glucose 86 mg/dL (65-110); Magnesium 1.7 mg/dL (1.6-2.3); Potassium 3.5 mmol/L (3.4-5.0); Sodium 136 mmol/L (137-145)
[2025-02-02 18:12] LABS: Troponin I < 0.012 ng/mL (0.000-0.034)
[2025-02-02 18:26] LABS: Influenza A QL RT-PCR Negative (Negative); Influenza B QL RT-PCR Negative (Negative); RSV RNA, RT-PCR Negative (Negative); SARS-CoV-2 RNA PCR Negative (Negative)
[2025-02-02 18:27] LABS: Add Urine Microscopic? NO; Appearance Urine Clear (Clear); Bilirubin Urine Negative (Negative); Blood Urine Negative (Negative); Color Urine Yellow (Yellow); Glucose Urine UA Negative (Negative); Ketones Urine 2+ mg/dL (Negative); Leukocyte Esterase Ur Negative LEU/UL (Negative); Nitrate Urine Negative (Negative); Protein Urine Negative (Negative)
== END 2025-02-02 19:05 | disposition home or self-care (01) ==
PROVIDERS: Emergency Medicine; Emergency Provider General Practice
DX: J20.9 Acute bronchitis, unspecified (principal); J45.909 Unspecified asthma, uncomplicated; Z20.822 Contact with and (suspected) exposure to COVID-19
CPT/HCPCS: 36415; 71046; 80053; 81003; 83735; 84484; 85025; 87637; 93005; 94640; 99284; J7512